=== PATIENT | male | born 1960 | race Hispanic/Latino ===

== ENCOUNTER 2019-05-30 10:06 | Day surgery (SDC) | payer MEDICARE ==
[2019-05-29 17:28] VITALS: BMI 34.5
[~2019-05-30 10:06] MED LIST: EPINEPHrine 0.3 MG in Ophthalmic Irrigation Solution 500 ML IRR SCH
[2019-05-30] MEDS ORDERED: Cyclopentolate 1% Opth Drop 2 ML BOT ONE (10:31)
[2019-05-30] MEDS ORDERED: Phenylephrine 2.5% Ophth Soln 5 ML BOT ONE (10:31)
[2019-05-30] MEDS ORDERED: Lidocaine 1% PF 5 ML VIAL ONE ×2 (10:33)
[2019-05-30] MEDS ORDERED: Ondansetron PF 4 MG/2 ML Vial ONE (10:33)
[2019-05-30] MEDS ORDERED: PROPOFOL 200 MG/20 ML VIAL ONE (10:33)
[2019-05-30] MEDS ORDERED: CEFAZOLIN 1 GM VIAL ONE (10:33)
[2019-05-30] MEDS ORDERED: Triamcinolone 40 MG/ML VIAL ONE (10:33)
[2019-05-30] MEDS ORDERED: Maxitrol 0.1% Opth Oint 3.5 GM TUBE ONE (10:33)
[2019-05-30] MEDS ORDERED: EPHEDRINE 25 MG/5 ML SYRINGE ONE (10:33)
[2019-05-30] MEDS ORDERED: Fentanyl 100 MCG/2 ML VIAL ONE ×5 (11:08→15:00)
[2019-05-30] MEDS ORDERED: Labetalol HCl 100 MG/20 ML VIAL ONE (11:08)
[2019-05-30] MEDS ORDERED: Midazolam HCl 2 mg/2 ml Vial ONE (11:38)
[2019-05-30] MEDS ORDERED: hydrALAZINE 20 MG/ML VIAL ONE (12:09)
[2019-05-30] MEDS ORDERED: HYDROcodone/Acetaminophen 5/325 mg Tablet ONE ×2 (15:47→15:50)
--- NOTE | 2019-05-30 15:58 | OP ---
DATE OF PROCEDURE: 05/30/2019 PRINCIPAL PREOPERATIVE DIAGNOSES: 1. Neovascular glaucoma, right eye. 2. Proliferative diabetic retinopathy, right eye. 3. Vitreous hemorrhage, right eye. ESTIMATED BLOOD LOSS: None. SPECIMENS REMOVED: None. COMPLICATIONS: None. ANESTHESIA: General anesthesia. PROCEDURE PERFORMED: 1. 25-gauge pars plana vitrectomy, right eye. 2. Ahmed valve tube shunt insertion, right eye. 3. Panretinal photocoagulation, right eye. DESCRIPTION OF PROCEDURE: The patient was identified in the preoperative holding area where the correct eye being the right eye was marked for surgery. The patient was taken to the operating room, where general anesthesia was induced. The right eye was then prepped and draped in the usual sterile ophthalmic fashion for surgery. A wire lid speculum was placed. A standard 25-gauge pars plana vitrectomy platform was fashioned with trocars placed approximately 3.5 mm posterior to the limbus. The infusion was noted to be within the vitreous cavity prior to being turned on to infusion pressure of 30 mmHg. The light pipe and microvitrector were introduced in the eye under visualization of the BIOM viewing system. A moderate vitreous hemorrhage was noted predominantly inferiorly. A careful core and peripheral shave vitrectomy were performed. Following completion of vitrectomy, panretinal photocoagulation was completed in the usual fashion with sparing of the 3 and 9 o'clock meridians with the use of endolaser. Following the completion of vitrectomy, attention was turned to the Ahmed valve tube site insertion. A superotemporal conjunctival peritomy was fashioned with Ovi scissors. The Ahmed valve was primed and subsequently inserted superotemporally. It was sutured to the sclera approximately 8 mm posterior to the limbus. This was done with 5-0 Mersilene suture. Subsequently, a stab incision with a 25-gauge trocar was made approximately 4.5 mm posterior to the limbus to allow for tube shunt insertion. The tube shunt was inserted through the pars plana into the vitreous cavity. Tutoplast was subsequently fashioned to cover the insertion site. The Tutoplast was fixated to the sclera with 7-0 Vicryl suture. The conjunctiva was subsequently reapproximated with 7-0 Vicryl suture. The cannulas were sequentially removed. All sclerotomies were sutured with 7-0 Vicryl suture. Following suturing, all sclerotomies were noted to be watertight. Subconjunctival Ancef and Kenalog were injected. The wire lid speculum was removed followed by application of TobraDex ophthalmic ointment and a light patch and shield. The patient tolerated the procedure well, was taken to outpatient recovery area in good condition. Job ID: [id number] [facility]
== END 2019-05-30 16:35 | disposition home or self-care (01) ==
LOC: SDC 10:06
PROVIDERS: ATTEND Ophthalmology Retina Specialist
PROC: 08123J4 Bypass Right Anterior Chamber to Sclera with Synthetic Substitute, Percutaneous Approach (ICD-10-PCS; principal; 2019-05-30)
PROC: 08T43ZZ Resection of Right Vitreous, Percutaneous Approach (ICD-10-PCS; 2019-05-30)
PROC: 08QE3ZZ Repair Right Retina, Percutaneous Approach (ICD-10-PCS; 2019-05-30)
DX: H40.2210 Chronic angle-closure glaucoma, right eye, stage unspecified (principal); E11.3591 Type 2 diabetes mellitus with proliferative diabetic retinopathy without macular edema, right eye; H43.11 Vitreous hemorrhage, right eye; I11.0 Hypertensive heart disease with heart failure; I50.9 Heart failure, unspecified; I25.10 Atherosclerotic heart disease of native coronary artery without angina pectoris; E78.5 Hyperlipidemia, unspecified; F17.200 Nicotine dependence, unspecified, uncomplicated; G47.30 Sleep apnea, unspecified; Z79.82 Long term (current) use of aspirin; Z79.84 Long term (current) use of oral hypoglycemic drugs; Z79.899 Other long term (current) drug therapy; Z95.1 Presence of aortocoronary bypass graft; Z99.89 Dependence on other enabling machines and devices
CPT/HCPCS: 36416; J0171; J0360; J0690; J2001; J2250; J2405; J2704; J3010; J3301; L8612